=== PATIENT | female | born 1960 | race Caucasian/White ===

== ENCOUNTER 2018-04-04 05:30 | Day surgery (SDC) | payer OTHER ==
[~2018-04-04 05:30] MED LIST: ASPIR 8181 MG PO; COZAAR50 MG PO; ZOLOFT100 MG PO
[2018-04-04] MEDS ORDERED: MACROBID 100 M100 MG PO (12:55)
[2018-04-04] MEDS ORDERED: ULTRACET PO (12:57)
== END 2018-04-04 18:30 | disposition home or self-care (01) ==
LOC: CIR.AMB 05:30
DX: N39.3 Stress incontinence (female) (male) (principal)
CPT/HCPCS: 57288; C1771